=== PATIENT | male | born 1990 | race Two or more races ===

== ENCOUNTER 2024-01-16 17:42 | Emergency (ER) | payer MEDICAID ==
[~2024-01-16] VITALS: Ht 180.3 cm; Wt 110.5 kg
[2024-01-16 18:42] LABS: BASOPHILS # (AUTO) 0.1 X10'3 (0-0.2); BASOPHILS % (AUTO) 0.7 % (0-1); EOSINOPHILS # (AUTO) 0.1 X10'3 (0-0.9); EOSINOPHILS % (AUTO) 0.9 % (0-6); HEMATOCRIT 47.8 % (42.0-52.0); HEMOGLOBIN 16.9 g/dl (14.0-17.9); LYMPHOCYTES # (AUTO) 4.5 X10'3 (1.1-4.8); LYMPHOCYTES % (AUTO) 40.4 % (21-51); MEAN CORPUSCULAR HEMOGLOBIN 33.3 PG (27.0-31.0); MEAN CORPUSCULAR HGB CONC 35.3 g/dL (33.0-36.5); MEAN CORPUSCULAR VOLUME 94.1 FL (78-98); MEAN PLATELET VOLUME 8.5 FL (7.4-10.4); MONOCYTES # (AUTO) 0.9 X10'3 (0-0.9); MONOCYTES % (AUTO) 8.3 % (2-12); NEUTROPHILS # (AUTO) 5.5 X10'3 (1.8-7.7); NEUTROPHILS % (AUTO) 49.7 % (42-75); PLATELET COUNT 180 X10'3 (140-440); RED BLOOD COUNT 5.08 X10'6 (4.70-6.10); RED CELL DISTRIBUTION WIDTH 13.1 % (11.5-14.5); WHITE BLOOD COUNT 11.1 X10'3 (4.5-11.0)
[2024-01-16 19:09] LABS: ALBUMIN 4.2 G/DL (3.4-5.0); ALKALINE PHOSPHATASE 135 IU/L (46-116); AMYLASE 85 U/L (25-115); ANION GAP 20 (8-16); BILIRUBIN,TOTAL 3.4 MG/DL (0.1-1.0); BLOOD UREA NITROGEN 12 MG/DL (7-18); CHLORIDE 98 MMOL/L (99-107); LIPASE 68 U/L (16-77); SODIUM 133 MMOL/L (135-145); TOTAL CARBON DIOXIDE 15.4 MMOL/L (24-32)
[2024-01-16 19:12] LABS: GLUCOSE 137 MG/DL (70-104); POTASSIUM 3.9 MMOL/L (3.5-5.1)
[2024-01-16 19:24] LABS: BUN/CREATININE RATIO 13.5 (10.0-20.0); CALCIUM 8.4 MG/DL (8.5-10.1); CREATININE 0.89 MG/DL (0.60-1.10); eCRCL 123 ML/MIN; eGFR > 90 ML/MIN
[2024-01-16 19:39] LABS: ALANINE AMINOTRANSFERASE 152 U/L (12-78); ASPARTATE AMINO TRANSFERASE 203 U/L (10-37)
[2024-01-16 19:41] LABS: ALBUMIN/GLOBULIN RATIO 1.3 (1.1-1.5); TOTAL PROTEIN 7.5 G/DL (6.4-8.2)
[2024-01-16 21:29] VITALS: TEMP 98
[2024-01-16 22:19] LABS: ETHANOL < 10 MG/DL (<10)
[2024-01-16] MEDS: normal saline 1000ML IV soln IVB ONE (22:46)
[2024-01-17 00:15] VITALS: BP 162/107; PULSE 78; RESP 18; O2SAT 99
== END 2024-01-17 00:27 | disposition home or self-care (01) ==
LOC: ER 17:43
DX: K62.5 Hemorrhage of anus and rectum (principal); R74.01 Elevation of levels of liver transaminase levels
CPT/HCPCS: 36415; 74176; 80053; 80320; 82150; 83690; 85025; 99285; J7030